=== PATIENT | female | born 1935 | race Caucasian/White ===

== ENCOUNTER 2016-10-02 07:50 | Day surgery (SDC) | payer MEDICARE, BC ==
[~2016-10-02] VITALS: Ht 157.5 cm; Wt 74.5 kg
[~2016-10-02 07:50] MED LIST: CALC.005%T TOPICAL; DEXI60CA PO; ISOS30TA3 PO; LATA.005%O EACH EYE; LEVO100T5 PO; LEXA20TA PO; LISI-515 PO; NITR0.4S SL; SIMV40TA PO; VENTAER INH; ZOLP10TA3 PO; [UNRECOGNIZED DRUG - CODE]
[2016-10-02] MEDS ORDERED: diphenhydrAMINE HCL 50 MG CAP PO SCH (08:15)
[2016-10-02] MEDS ORDERED: NS 1000P @30 MLS/HR (KVO) IV SCH (08:15)
[2016-10-02 08:27] VITALS: BP 178/75; PULSE 74; RESP 18; TEMP 98.7; O2SAT 96
[2016-10-02 08:42] LABS: AUTOMATED NEUTROPHIL # 4.6 TH/MM3 (1.8-7.7); BASOPHIL # 0.1 TH/MM3 (0-0.2); BASOPHIL % 1.1 % (0.0-2.0); EOSINOPHIL # 0.1 TH/MM3 (0-0.4); EOSINOPHIL % 1.4 % (0.0-4.0); HEMO FLAGS DIFF FINAL; LYMPH % 15.9 % (9.0-44.0); MEAN CELL VOLUME 92.3 FL (80.0-100.0); MEAN CORPUSCULAR HEMOGLOBIN 30.7 PG (27.0-34.0); MEAN CORPUSCULAR HGB CONC 33.3 % (32.0-36.0); MONO % 11.1 % (0.0-8.0); NEUT % 70.5 % (16.0-70.0); PLATELET COUNT 165 TH/MM3 (150-450); RED BLOOD COUNT 4.77 MIL/MM3 (4.00-5.30); RED CELL DISTRIBUTION WIDTH 13.7 % (11.6-17.2); WHITE BLOOD COUNT 6.6 TH/MM3 (4.0-11.0)
[2016-10-02] MEDS ORDERED: MOTR200T4 PO (08:45)
[2016-10-02] MEDS ORDERED: META48.53 PO (08:45)
[2016-10-02] MEDS ORDERED: LATA.005%O EACH EYE (08:45)
[2016-10-02] MEDS ORDERED: LOPE7.5C PO (08:45)
[2016-10-02] MEDS ORDERED: LACTCAP8 PO (08:45)
[2016-10-02] MEDS ORDERED: CALC1CHW35 CHEW (08:45)
[2016-10-02 08:52] LABS: APTT (PATIENT) 27.8 SEC (24.3-30.1); PROTHROMBIN TIME - PATIENT 11.2 SEC (9.8-11.6)
[2016-10-02 09:01] LABS: BICARBONATE 27.1 MEQ/L (21.0-32.0); POTASSIUM 3.7 MEQ/L (3.5-5.1)
[2016-10-02] MEDS ORDERED: HEPARIN-NS/PF INJ 500 ML ONE (09:30)
[2016-10-02] MEDS ORDERED: MIDAZOLAM HCL 2 MG/2 ML VIAL ONE (09:32)
[2016-10-02] MEDS ORDERED: hydrALAZINE HCL 20 MG/ML VIAL ONE (10:42)
[2016-10-02] MEDS ORDERED: IOHEXOL 350 MG/ML 100 ML BTL (for Cath Lab) OTHER ONE (11:10)
[2016-10-02] MEDS ORDERED: ONDANSETRON HCL 4 MG/2 ML VIAL IV PRN (11:15)
[2016-10-02] MEDS ORDERED: MISC INFORMATION XX ONE (11:15)
[2016-10-02] MEDS ORDERED: ATROPINE SULFATE 1 MG/ML VIAL IV PRN (11:15)
--- NOTE | 2016-10-02 13:13 | MA ---
cc: MEADOWSGlennyABELDARWIN DOBBS DATE 10/02/2016 DATE OF 1935 PROCEDURE 1. Left heart catheterization 2. Selective right and left coronary angiography 3. Left ventricle pressure recordings 4. Right heart catheterization 5. Right common femoral artery angiography INDICATIONS Severe symptomatic aortic stenosis preop evaluation/COPD. PROCEDURE DESCRIPTION Consent signed. The patient was brought into the cardiac malthouse laborer in A fasting state. The right groins were prepped and draped in a sterile fashion. Using 1 % lidocaine for local anesthesia and a micropuncture kit, a 6-Iranian sheath was inserted into the right common femoral artery and a 5-Iranian sheath was inserted in the right common femoral vein. Selective right common femoral artery angiography was performed to confirm position of the arterial sheath. Then we proceeded with floating a 5-Iranian [place] to wedge. This was followed by pressure recordings as well as getting blood samples for O2 saturations in each of the right heart chambers and femoral artery for calculation of CO by Bird's equation formula. Then selective right and left coronary angiography through the 6-Iranian arterial sheath with a JR-4 and JL-5 diagnostic catheters. Angiography was performed in multiple views. Given her severe aortic stenosis, the left ventricle was crossed with an AL-1 over a straight angle stiff Glidewire. This was exchanged to a 4-Iranian angled pigtail catheter. The wire was exchanged with an Amplatz stiff 260 cm wire followed by insertion of a dual lumen pigtail catheter. Simultaneous aortogram and LV pressures were taken. The patient tolerated the procedure well without complications. Estimated blood loss less than 50 cc. Total contrast used 75 cc. The right groin access sites were closed with manual pressure. RESULTS Right heart cath pressures: The wedge pressure 27 mmHg, main pulmonary artery 57/24 with a mean of 40. Right ventricle 56/18 with a mean of 21. Right atrium 22/21 with a mean of 17. The cardiac output was calculated to be 5L/min by Bird's equation. LEFT VENTRICLE The left ventricular pressure was 247/27 with an LVEDP of 36. The aortic pressure was 103/67 with a mean of 125. The mean gradient in left ventricle was 29. Hakki equation, the calculated valve area is 0.94 consistent with severe aortic stenosis. ANGIOGRAPHY 1. The right coronary artery is a dominant vessel, has minimal luminal irregularities throughout. Nonobstructive coronary artery disease.The patient has a stent in the proximal right coronary artery that is patent, some ISR of around 30%. PDA patent. 2. The left main is patent with nonobstructive CAD, PATY-III flow. 3. The LAD is a transapical vessel and has minimal luminal irregularities and a 20% lesion proximally after S1. Its diagonals are patent with nonobstructive coronary artery disease. 4. The circumflex artery is patent with PATY-III flow and nonobstructive coronary artery disease. Of note the ascending aorta, is calcified CONCLUSION 1. Severe aortic stenosis with a calculated valve area of 0.94. 2. Coronary artery disease with a patent stent in the proximal right coronary artery. 3. Elevated LVEDP. RECOMMENDATIONS The patient will be consulted with surgery for aortic valve replacement evaluation/TAVR. MD CEDRICK Watts/KARLA /10:53 AM /12:59 PM WILLIE
--- NOTE | 2016-10-02 14:48 | RADRPT ---
EXAM DATE/TIME: 10/02/2016 13:43 [facility] COMPARISON: No previous studies available for comparison. INDICATIONS : Preop AVR. MEDICAL HISTORY : Thyroid disease. Hyperlipidemia. Hypertension. COPD. GERD. Diabetic. Breast cancer. SURGICAL HISTORY : None. ENCOUNTER: Initial ACUITY: 1 day PAIN SCORE: 5/10 LOCATION: Bilateral neck PEAK SYSTOLIC VELOCITIES (cm/sec): ICA/CCA RATIO: Right: 1.1 Left: 1.7 ICA: Right: 115 Left: 238 CCA: Right: 100 Left: 140 ECA: Right: 68 Left: 198 VERTEBRAL: Right: 33 antegrade Left: 105 antegrade Elevated flow velocities and ICA/CCA ratios have been found to correlate with increased degrees of vessel stenosis, calculated as percentage of diameter relative to a normal segment of distal ICA/CCA FINDINGS: RIGHT CAROTID: There is no evidence for a hemodynamically significant carotid stenosis. Minimal int imal hyperplasia is present with scattered calcific plaque. LEFT CAROTID: Moderate calcific plaque is present on the left with elevated velocities and borderline significant ratio. CT angiography may be of benefit. VERTEBRAL ARTERIES: Flow is antegrade in both vertebral arteries. MISCELLANEOUS: There are no ancillary masses or adenopathy. CONCLUSION: Borderline significant carotid stenosis on the left as described above. Joss Henry MD FACR Joss Henry MD FACR on October 02, 2016 at 14:45 Board Certified Radiologist. This report was verified electronically.
--- NOTE | 2016-10-02 16:44 | PD.CAR.PN ---
CVT Progress Note Subjective/Hospital Course: sts data discussed with pt RISK SCORES About the STS Risk Calculator Procedure: AV Replacement Risk of Mortality: 5.281% Morbidity or Mortality: 18.267% Long Length of Stay: 8.883% Short Length of Stay: 25.023% Permanent Stroke: 1.892% Prolonged Ventilation: 12.525% DSW Infection: 0.31% Renal Failure: 4.05% Reoperation: 7.988% Objective: Vital Signs Date Time Temp Pulse Resp B/P Pulse Ox O2 Delivery O2 Flow Rate FiO2 10/02/16 11:40 96 Room Air 10/02/16 08:27 98.7 74 18 178/75 96 Labs: Laboratory Tests Test 10/02/16 08:15 White Blood Count 6.6 TH/MM3 (4.0-11.0) Red Blood Count 4.77 MIL/MM3 (4.00-5.30) Hemoglobin 14.6 GM/DL (11.6-15.3) Hematocrit 44.0 % (35.0-46.0) Mean Corpuscular Volume 92.3 FL (80.0-100.0) Mean Corpuscular Hemoglobin 30.7 PG (27.0-34.0) Mean Corpuscular Hemoglobin 33.3 % Concent (32.0-36.0) Red Cell Distribution Width 13.7 % (11.6-17.2) Platelet Count 165 TH/MM3 (150-450) Mean Platelet Volume 10.0 FL (7.0-11.0) Neutrophils (%) (Auto) 70.5 % (16.0-70.0) Lymphocytes (%) (Auto) 15.9 % (9.0-44.0) Monocytes (%) (Auto) 11.1 % (0.0-8.0) Eosinophils (%) (Auto) 1.4 % (0.0-4.0) Basophils (%) (Auto) 1.1 % (0.0-2.0) Neutrophils # (Auto) 4.6 TH/MM3 (1.8-7.7) Lymphocytes # (Auto) 1.0 TH/MM3 (1.0-4.8) Monocytes # (Auto) 0.7 TH/MM3 (0-0.9) Eosinophils # (Auto) 0.1 TH/MM3 (0-0.4) Basophils # (Auto) 0.1 TH/MM3 (0-0.2) CBC Comment DIFF FINAL Differential Comment Prothrombin Time 11.2 SEC (9.8-11.6) Prothromb Time International 1.0 RATIO Ratio Activated Partial 27.8 SEC Thromboplast Time (24.3-30.1) Sodium Level 142 MEQ/L (136-145) Potassium Level 3.7 MEQ/L (3.5-5.1) Chloride Level 107 MEQ/L (98-107) Carbon Dioxide Level 27.1 MEQ/L (21.0-32.0) Anion Gap 8 MEQ/L (5-15) Blood Urea Nitrogen 12 MG/DL (7-18) Creatinine 0.92 MG/DL (0.50-1.00) Estimat Glomerular Filtration 59 ML/MIN (>89) Rate Random Glucose 135 MG/DL (74-106) Calcium Level 8.7 MG/DL (8.5-10.1) Result Diagram: 10/02/16 0815 10/02/16 0815 Mago Martinez Oct 02, 2016 16:43
[2016-10-02 17:22] LABS: HEMOGLOBIN A1a 1.1 %; HEMOGLOBIN A1b 0.8 %; HEMOGLOBIN Ao 84.8 %; HEMOGLOBIN LA1C 2.1 %; HEMOGLOBIN P3 5.3 %
--- NOTE | 2016-10-02 17:26 | RADRPT ---
EXAM DATE/TIME: 10/02/2016 17:07 [facility] COMPARISON: CHEST PA & LAT, October 02, 2016, 17:17. INDICATIONS : Preop AVR,Evaluation for aortic calcification RADIATION DOSE: 5.67 CTDIvol (mGy) MEDICAL HISTORY : Hypertension. Carcinoma, breast. SURGICAL HISTORY : Mastectomy, bilateral. ENCOUNTER: Initial ACUITY: 1 day PAIN SCALE: 0/10 LOCATION: chest TECHNIQUE: Volumetric scanning of the chest was performed. Using automated exposure control and adjustment of t he mA and/or kV according to patient size, radiation dose was kept as low as reasonably achievable to obtain optimal diagnostic quality images. FINDINGS: LUNGS: There is an 8mm nodular opacity seen in the lateral left lower lung best seen on image #32. The righ t lung is clear. PLEURAE: Moderate size right pleural effusion measures 2.1 cm in thickness. MEDIASTINUM: Dense calcification in the aorta and coronary arteries. There is also calcification seen about the a ortic valve and mitral annulus. AXILLAE: Hemoclips bilateral axilla and history of bilateral mastectomy. MUSCULOSKELETAL: No destructive lesions seen. CONCLUSION: 1. Moderate size right pleural effusion. 2. 8mm left lung nodule. 3. Aortic and mitral calcification. Bryan Green MD on October 02, 2016 at 17:21 Board Certified Radiologist. This report was verified electronically.
--- NOTE | 2016-10-02 17:31 | RADRPT ---
EXAM DATE/TIME: 10/02/2016 17:17 [facility] COMPARISON: CT THORAX W/O CONTRAST, October 02, 2016, 17:07. INDICATIONS : Evaluate for pneumonia, pneumothorax, or communicable disease. Pre op for AVR. MEDICAL HISTORY : Carcinoma, breast. SURGICAL HISTORY : Mastectomy, bilateral. ENCOUNTER: Initial ACUITY: 1 day PAIN SCORE: 0/10 LOCATION: Bilateral chest FINDINGS: PA and lateral views of the chest demonstrate the lungs to be symmetrically aerated without evidence of mass, infiltrate or effusion. The cardiomediastinal contours are smooth and there is mild tortuos ity of the descending thoracic aorta.. Osseous structures are intact. Hemoclips in both axilla. Th ere is a thin wire which courses from the left lateral chest to the mid superior vena cava, possibly a retained cardiac lead. CONCLUSION: No focal infiltrates seen. Both hemidiaphragms are well delineated, yet a concurrently performed CT scan demonstrated a small to moderate size right pleural effusion. Bryan Green MD on October 02, 2016 at 17:27 Board Certified Radiologist. This report was verified electronically.
--- NOTE | 2016-10-02 21:58 | EKG ---
Date Performed: 10/02/2016 Time Performed: 09:01:48 PTAGE: 80 years EKG: Sinus rhythm Left ventricular hypertrophy Inferior/lateral ST-T changes may be due to hypertrophy and/or ischemia Abnormal ECG NO PREVIOUS TRACING DOCTOR: Jose Armando Llanos Interpretating Date/Time 10/02/2016 21:57:25
--- NOTE | 2016-10-03 08:51 | MB ---
cc: ALE TOMAS DATE OF CONSULTATION 10/02/2016 DATE OF 1935 An 80-year-old female. A patient of Dr. Shahana Sanchez, Dr. Munguia, also Dr. Shay Boogie. History of aortic stenosis with insufficiency. Also history of coronary artery disease with prior PCI drug eluting stents. The patient apparently has been complaining of chest pain and has been followed for her valve. Underwent echocardiogram back in October 29, which showed an EF of 66%, some moderate left ventricular hypertrophy, some diastolic dysfunction. The aortic leaflet motion had some moderately restricted motion, velocity consistent with moderate to severe stenosis. Peak gradient of 67. The mean was 34, valve area 0.65. The mitral valve had some severe mitral calcification, a moderate leaflet calcification. The tricuspid valve had some trivial regurgitation. The mitral also had some mean gradient of 6 mm consistent with some moderate stenosis. We were consulted to evaluate for aortic valve replacement versus evaluation for transcatheter aortic valve replacement. PAST MEDICAL HISTORY Significant for: 1. Aortic insufficiency with aortic stenosis. 2. Mitral stenosis. 3. History of coronary artery disease. 4. Hyperlipidemia 5. Hypertension. 6. Occlusion and stenosis of the left carotid artery. PAST SURGICAL HISTORY Include: 1. Prior cardiac catheterization in 2003. 2. She has had a history of drug-eluting stent of the mid RCA in 2003. Repeat catheterization in 2013 showed a patent stent with RV branch stenosis, medically managed. 3. She underwent cardiac cath today by Dr. Shay Boogie which showed patent stents, some aortic calcification. She did have RV pressures of 56/18. RA pressures of 22/21, cardiac output of 5. Aortic valve area 0.94. ALLERGIES THE PATIENT HAS ALLERGIES TO ENTEX, GUAIFENESIN, PSEUDOPHEDRINE. MEDICATIONS Home medications include: 1. Albuterol. 2. Ambien. 3. Aspirin. 4. Dexilant. 5. Imdur. 6. Levothyroxine. 7. Lexapro. 8. Lisinopril. 9. Motrin. 10. Nitro. 11. Simvastatin. FAMILY HISTORY Coronary artery disease in her brother. SOCIAL HISTORY Occasional alcohol. Currently smokes half a pack to pack per day. REVIEW OF SYSTEMS GENERAL: No night sweats, fever, heat and cold intolerance. SKIN: No psoriasis, itching or hives. HEENT: No blurred vision, hearing loss. RESPIRATORY: Some shortness of breath with exertion. CARDIOVASCULAR: Some occasional chest pain. No paroxysmal nocturnal dyspnea. No orthopnea. GASTROINTESTINAL: No diarrhea, vomiting. GENITOURINARY: No burning, frequency, urgency. CENTRAL NERVOUS SYSTEM: No history of TIA, CVA, seizure disorder. ENDOCRINE: No history of diabetes. PHYSICAL EXAMINATION VITAL SIGNS: On exam blood pressure 178/75, heart rate 74, afebrile. Patient is 96% on room air. GENERAL: Patient is awake, alert, no acute distress. HEENT: Head is normocephalic, atraumatic. Pupils equal and reactive. Oral mucosa pink, moist. NECK: Supple. No JVD. CARDIOVASCULAR: Heart sounds S1-S2. Grade 3/4 systolic murmur present. LUNGS: Diminished in the bases, otherwise clear to auscultation. ABDOMEN: Obese, soft, nontender. No masses or organomegaly. EXTREMITIES: No cyanosis, clubbing or edema. LABORATORY DATA Lab work shows hemoglobin 14, hematocrit of 44, white cell count 6.6, platelet count 165. Sodium 142, potassium 3.7, BUN 12, creatinine 0.92. Hemoglobin A1c pending. INR 1.0. IMAGING Radiological exams, his carotid ultrasound shows borderline significant stenosis on the left. ICA ratio on the left is 1.7 with velocities of 238 on the left. IMPRESSION This is an 80-year-old female with multiple comorbidities including aortic stenosis, some mitral stenosis being evaluated for aortic valve replacement versus a candidate for transcatheter aortic valve replacement. Further workup is still pending including CT of the thorax and chest and also chest x-ray. She has got some stenosis on the left carotid artery approximately 60% with no symptoms. Her EF is normal. The patient's family is asking whether or not they can take her on a cruise prior to surgery. This will be discussed with Dr. Flores and the patient's family. In the meantime she will be scheduled as an outpatient to come in on FridayOctober 21 for preop testing and then surgery tentatively set for the after all the rest of her imaging is available and evaluated by Dr. Ale Tomas. ADDENDUM PAST MEDICAL HISTORY Right breast cancer in 1991 where she had double radical mastectomy with chemo and radiation, and we also had followup on her carotid ultrasound which showed some moderate stenosis, approximately 60% on the left internal carotid. She also had a CT of her chest which showed extensive calcification in the aorta, a moderate size right pleural effusion, 8 mm left nodule. Evaluation at this time will be for transcatheter aortic valve replacement and we will send information and have her evaluated at [facility] in [place] for this procedure. DICTATED BY: SOFIA Tony Ale MD MINNA Bland/ISAAC /4:05 PM /10:30 AM
--- NOTE | 2016-10-07 10:55 | RSPPFT ---
DATE OF PROCEDURE: 10/02/16 COMMENTS: The forced vital capacity shows a marked reduction. The FEV1 is markedly reduced. The FEF 25-75 is normal. The FEV1/FVC ratio is normal. IMPRESSION: This is compatible with severe restrictive lung disease.
[2016-10-19] MEDS ORDERED: LEVO100T5 PO (15:54)
[2016-11-22] MEDS ORDERED: LEVO750T3 PO (10:05)
[2016-11-22] MEDS ORDERED: HYDR5SYP10 PO (10:06)
[2016-11-25] MEDS ORDERED: NITR0.4S SL (12:02)
== END 2016-10-02 19:04 | disposition home or self-care (01) ==
LOC: HDOC 07:50 → HDIC 07:51 → HDOC 19:04
PROVIDERS: ATTEND Radiology Vascular & Interventional Radiology
DX: I35.0 Nonrheumatic aortic (valve) stenosis (principal); I05.0 Rheumatic mitral stenosis; I10 Essential (primary) hypertension; I25.10 Atherosclerotic heart disease of native coronary artery without angina pectoris; I65.23 Occlusion and stenosis of bilateral carotid arteries; J44.9 Chronic obstructive pulmonary disease, unspecified; E11.9 Type 2 diabetes mellitus without complications; E78.5 Hyperlipidemia, unspecified; E07.9 Disorder of thyroid, unspecified; R91.1 Solitary pulmonary nodule; J90 Pleural effusion, not elsewhere classified; K21.9 Gastro-esophageal reflux disease without esophagitis; F17.210 Nicotine dependence, cigarettes, uncomplicated; Z79.82 Long term (current) use of aspirin; Z85.3 Personal history of malignant neoplasm of breast
CPT/HCPCS: 71020; 71250; 80048; 82810; 83036; 85025; 85610; 85730; 87641; 93005; 93457; 93880; 94010; C1769; C1893; J0360; J1644; J2250; J3010; Q9967